=== PATIENT | male | born 1965 | race Caucasian/White ===

== ENCOUNTER → 2021-07-22 | Outpatient (CLI) | payer OTHER | LOC: HEART 5 10:12 | DX: J44.9 Chronic obstructive pulmonary disease, unspecified (principal); R94.2 Abnormal results of pulmonary function studies | CPT/HCPCS: 94060; 94729 ==

== ENCOUNTER → 2021-12-14 | Outpatient (CLI) | payer OTHER | LOC: SLEEP 21:30 | DX: G47.33 Obstructive sleep apnea (adult) (pediatric) (principal) | CPT/HCPCS: 95811 ==

== ENCOUNTER → 2022-04-09 | Outpatient (CLI) | payer OTHER ==
[~2022-04-09] MED LIST: FUROSEMIDE40 MG PO; GLIPIZIDE10 MG PO; HYDROXYZINE HCL25 MG PO; LISINOPRIL20 MG PO; MELOXICAM15 MG PO; METFORMIN HCL1000 MG PO; MIRAPEX0.5 MG PO; PROTONIX40 MG PO; SIMVASTATIN20 MG PO; THEOPHYLLINE400 MG PO
[2022-04-09 11:32] LABS: HEMOGLOBIN 15.7 gm/dl (14.0-17.5); RED BLOOD COUNT 5.09 M/UL (4.20-5.50); WHITE BLOOD COUNT 11.9 K/UL (4.5-11.0)
[2022-04-09 11:50] LABS: BUN/CREATININE RATIO 24 (0-10)
== END ==
LOC: OPSV2 09:00
PROVIDERS: Orthopaedic Surgery
DX: Z01.818 Encounter for other preprocedural examination (principal); G56.01 Carpal tunnel syndrome, right upper limb
CPT/HCPCS: 71046; 80048; 83036; 85025; 93005